=== PATIENT | male | born 1995 | race Caucasian/White ===

== ENCOUNTER → 2020-07-30 | Outpatient (CLI) | payer OTHER ==
--- NOTE | ~2020-07-30 | TST ---
[place] [address] TREADMILL STRESS TEST Name: JULI MORENO Room: [facility]#: [id number] Admission: 07/30/20 Attend Phys: Holli Laird, Discharge: Date of : 89 Date of Service: 07/30/20 1429 Report #: [id number] THIS REPORT FOR: cc: Noreen Farmer Linda J. DO Liston, Michael J. MD [facility] ~ DATE OF SERVICE: 07/30/2020 PROCEDURE: Standard Malik protocol exercise stress test. INDICATION: Chest pain and palpitations. CARDIAC HISTORY: None. CARDIAC RISK FACTORS: None. DESCRIPTION OF PROCEDURE: The patient exercised per standard Malik protocol for a total of 13 minutes and 59 seconds. The patient achieved 92% of age predicted maximum heart rate and an energy expenditure equivalent to 14.82 METS. The resting heart rate was 78 beats per minute with a resting blood pressure of 104/61 mmHg. At peak stress, the heart rate was 182 beats per minute with a peak stress blood pressure of 157/94 mmHg. Recovery heart rate was 105 beats per minute with a recovery blood pressure of 123/67 mmHg. Exercise was discontinued due to fatigue. The patient denied any chest pain with exercise. The baseline 12-lead EKG shows sinus rhythm with diffuse ST segment elevation consistent with early repolarization. EKGs obtained during and post-exercise shows sinus rhythm and sinus tachycardia with no significant ST segment changes when compared to baseline. There were no stress-induced arrhythmias. IMPRESSION: 1. Clinical response, nonischemic. 2. EKG response, nonischemic. CONCLUSION: The standard Malik protocol exercise stress test shows no clinical or EKG evidence of stress-induced ischemia. This is a low-risk study. By: 1429 [id number] Ever Esparza MD, FACC /nt
--- NOTE | 2020-07-30 12:39 | 2DMMODE ---
[place] [address] 2 D/M-MODE ECHOCARDIOGRAM Name: JULI MORENO Room: [facility]#: [id number] Admission: 07/30/20 Attend Phys: Holli Laird, Discharge: Date of : 89 Date of Service: 07/30/20 1239 Report #: [id number] THIS REPORT FOR: cc: Noreen Farmer Linda J. DO Liston, Michael J. MD [facility] ~ APPROVED REPORT Study performed: 07/30/2020 10:46:35 EXAM: Comprehensive 2D, Doppler, and color-flow Echocardiogram Patient Location: Out-Patient Status: routine BSA: 2.02 HR: 53 bpm Rhythm: NSR Other Information Study Quality: Good Indications Chest Pain 2D Dimensions IVSd: 10.52 (7-11mm) LVOT Diam: 19.59 (18-24mm) LVDd: 49.31 mm PWd: 7.73 (7-11mm) Ascending Ao: 30.55 (22-36mm) LVDs: 31.56 (25-40mm) Aortic Root: 28.02 mm Volumes Left Atrial Volume (Systole) LA ESV Index: 22.30 mL/m2 Aortic Valve AoV Peak Kevyn.: 1.24 m/s AO Peak Gr.: 6.16 mmHg LVOT Max P.86 mmHg AO Mean Gr.: 3.02 mmHg LVOT Mean P.54 mmHg LVOT Max V: 1.21 m/s AO V2 VTI: 24.35 cm LVOT Mean V: 0.72 m/s CALE (VTI): 3.10 cm2 LVOT V1 VTI: 25.02 [place] [address] 2 D/M-MODE ECHOCARDIOGRAM Name: [facility]ORENO [id number] Admission: 07/30/20 Attend Phys: Holli Laird, Discharge: Date of : 89 Date of Service: 07/30/20 1239 Report #: [id number] Mitral Valve E/A Ratio: 2.05 MV Decel. Time: 225.84 ms MV E Max Kevyn.: 0.77 m/s MV PHT: 65.49 ms MVA (PHT): 3.36 cm2 TDI E/Lateral E': 2.96 E/Medial E': 5.13 Medial E' Kevyn.: 0.15 m/s Lateral E' Kevyn.: 0.26 m/s Pulmonary Valve PV Peak Kevyn.: 0.96 m/s PV Peak Gr.: 3.66 mmHg Tricuspid Valve RAP Estimate: 5.00 mmHg TR Peak Gr.: 18.16 mmHg RVSP: 23.00 mmHg PA Pressure: 23.00 mmHg Left Ventricle The left ventricle is normal size. There is normal LV segmental wall motion. There is normal left ventricular wall thickness. Left ventricular systolic function is normal. LVEF is 65-70%. The left ventricular diastolic function is normal. Right Ventricle The right ventricle is normal size. The right ventricular systolic function is normal. Atria The left atrium size is normal. The right atrium size is normal. Aortic Valve The aortic valve is normal in structure. No aortic regurgitation is present. There is no aortic valvular stenosis. Mitral Valve The mitral valve is normal in structure. There is no mitral valve regurgitation noted. No evidence of mitral valve stenosis. Tricuspid Valve The tricuspid valve is normal in structure. Trace tricuspid regurgitation. [place] [address] 2 D/M-MODE ECHOCARDIOGRAM Name: JULI MORENO Room: [facility]#: [id number] Admission: 07/30/20 Attend Phys: Holli Laird, Discharge: Date of : 89 Date of Service: 07/30/20 1239 Report #: [id number] Pulmonic Valve The pulmonary valve is normal in structure. There is no pulmonic valvular regurgitation. Great Vessels The aortic root is normal in size. IVC is normal in size and collapses >50% with inspiration. Pericardium There is no pericardial effusion. <Conclusion> The left ventricle is normal size. There is normal left ventricular wall thickness. Left ventricular systolic function is normal. LVEF is 65-70%. The left ventricular diastolic function is normal. Trace tricuspid regurgitation. No pulmonary hypertension. IVC is normal in size and collapses >50% with inspiration. <ELECTRONICALLY SIGNED> By: Ever Esparza MD, FACC 07/30/20 1239 1239 1239 Ever Esparza MD, FACC /INF
== END ==
LOC: M.CRD 07-29 14:42
PROVIDERS: ATTEND Internal Medicine
DX: R07.89 Other chest pain (principal); R00.2 Palpitations; R00.0 Tachycardia, unspecified